=== PATIENT | female | born 1955 | race Caucasian/White ===

== ENCOUNTER 2016-07-06 00:28 | Emergency (ER) | payer SELFPAY ==
--- NOTE | ~2016-07-06 | CT71 ---
[facility] A Service [facility] RADIOLOGY TEXT RESULTS PATIENT: ODELL WAGNER LOCATION: [facility] : 51 UNIT #: [id number] AGE: [address]: Pawel Donis MD SEX: F ORDER DR: [id number] [facility] [address] [place], [place] [address] [id number] E MR#: [id number] Acc #: [id number] NAME: ODELL WAGNER : 1955 SEX: F STUDY DATE/TIME: 07/06/2016 1:04 UNIT: [facility] ROOM: STUDY DESCRIPTION: CT Head Wo Contrast Attending Physician: Pawel Donis M.D. Ordering Physician: Pawel Donis M.D. Primary Care Physician: Primary Care Physician No MEDICAL IMAGING REPORT This report is preliminary unless electronic signature is present EXAM CT head, noncontrast, 07/06/2016 HISTORY 60-year-old female in the ED complaining of 3-day history of headache, body aches and cough. TECHNIQUE CT examination of the head was performed without IV contrast. This CT exam was performed with one or more of the following radiation dose reduction techniques: automatic exposure control, adjustment of mA and/or kV according to patient size, and iterative reconstruction. FINDINGS No acute intracranial abnormality is identified. Minimal generalized cerebral cortical atrophy. Mild diffuse low-attenuation white matter changes, nonspecific but likely related to chronic small vessel disease. 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 No evidence of intracranial hemorrhage, mass, mass effect, cerebral edema, hydrocephalus or additional abnormality. Mild mucosal thickening is visible within the ethmoid and maxillary sinuses. IMPRESSION 1. No acute intracranial abnormality. 2. Mild diffuse chronic changes as noted above. 3. Mild mucosal thickening in the visualized ethmoid and maxillary sinuses. [facility] A Service [facility] RADIOLOGY TEXT RESULTS PATIENT: ODELL WAGNER LOCATION: [facility] : 53 UNIT #: [id number] AGE: [address]: Pawel Donis MD SEX: F ORDER DR: Dictated by... Jimenez Glover M.D. THIS IS AN ELECTRONICALLY VERIFIED REPORT Jimenez Glover M.D. at 07/06/2016 10:06 PM EDEN/calli TD: 07/06/2016 13:06 JOB #: [id number] MEDICAL IMAGING REPORT Page 1 of 1 COPY
--- NOTE | ~2016-07-06 | CR72 ---
[facility] A Service of [facility] RADIOLOGY TEXT RESULTS PATIENT: ODELL WAGNER LOCATION: [facility] : 53 UNIT #: [id number] AGE: [address]: Pawel Donis MD SEX: F ORDER DR: [id number] [facility] [address] [place], [place] [address] [id number] E MR#: [id number] Acc #: [id number] NAME: ODELL WAGNER : 1955 SEX: F STUDY DATE/TIME: 07/06/2016 2:50 UNIT: [facility] ROOM: STUDY DESCRIPTION: CR Chest Single View Portable Attending Physician: Pawel Donis M.D. Ordering Physician: Pawel Donis M.D. Primary Care Physician: Primary Care Physician No MEDICAL IMAGING REPORT This report is preliminary unless electronic signature is present EXAM AP portable chest 07/06/2016 HISTORY 60-year-old female in the ED complaining of 3-day history of chest pain, shortness of air and body aches. TECHNIQUE AP portable chest x-ray. FINDINGS No definite active disease in the chest. Mild cardiomegaly. Pulmonary vascularity is normal. Elevated right hemidiaphragm, most likely chronic. The lungs appear clear. No pleural effusion. IMPRESSION No active disease. Dictated by... Jimenez Glover M.D. THIS IS AN ELECTRONICALLY VERIFIED REPORT Jimenez Glover M.D. at 07/06/2016 10:06 PM EDEN/imelda TD: 07/06/2016 13:20 JOB #: [id number] MEDICAL IMAGING REPORT Page 1 of 1 COPY
[2016-07-06 01:16] LABS: BASOPHIL% 0.1 % (0-2.5); HEMATOCRIT 41.1 % (35.0-45.0); HEMOGLOBIN 13.5 gm/dL (12.0-16.0); LYMPHOCYTE# 0.8 X10e3 (1.0-3.5); LYMPHOCYTE% 4.5 % (17.0-45.0); MEAN CELL VOLUME 87.7 FL (83-96); MEAN CORPUSCULAR HEMOGLOBIN 28.8 PG (28-34); MEAN CORPUSCULAR HGB CONC 32.9 g/dL (30-36); MEAN PLATELET VOLUME 7.9 FL (6.5-11.5); MONOCYTE# 0.8 X10e3 (0-1.0); MONOCYTE% 4.5 % (3.0-12.0); NEUTROPHIL# 15.2 X10e3 (1.5-7.1); NEUTROPHIL% 90.9 % (40-75); PLATELET COUNT 222 X10e3 (140-420); RED BLOOD COUNT 4.69 X10e (3.90-5.30); RED CELL DISTRIBUTION WIDTH 13.5 % (11.0-15.5); WHITE BLOOD COUNT 16.7 X10e3 (4.0-10.5)
[2016-07-06 01:17] LABS: DIFF IND YES
[2016-07-06 01:32] LABS: ALBUMIN SERUM 3.9 g/dL (3.5-5.0); ALKALINE PHOSPHATASE 111 U/L (32-92); ALT (SGPT) 19 U/L (10-40); AST (SGOT) 22 U/L (10-42); BILIRUBIN,TOTAL 0.9 mg/dL (0.2-2.0); BLOOD UREA NITROGEN 8 mg/dL (9-23); BUN/CREATININE RATIO 13.33; CALCIUM SERUM 8.5 mg/dL (8.4-10.2); CARBON DIOXIDE 25 mmol/L (22-31); CHLORIDE 96 mmol/L (100-111); CREATININE SERUM 0.6 mg/dL (0.6-1.4); GLOM FILT RATE Estimated ABOVE60 mL/min (>60); GLUCOSE FASTING 156 mg/dL (70-110); POTASSIUM 3.1 mmol/L (3.5-5.1); PROTEIN TOTAL SERUM 7.7 g/dL (6.0-8.3); SODIUM 131 mmol/L (135-145)
[2016-07-06 01:39] LABS: PLATELET ESTIMATE NORMAL (NORMAL); RBC NORMAL YES
[2016-07-06 02:22] LABS: URINE SOURCE CLEAN CATCH
[2016-07-06 02:28] LABS: URINE APPEARANCE CLEAR; URINE BILIRUBIN NEG (NEG); URINE BLOOD TRACE (NEG); URINE COLOR YELLOW; URINE GLUCOSE NEG (NEG); URINE KETONE NEG (NEG); URINE LEUKOCYTE ESTERASE 2+ (NEG); URINE NITRATE NEG (NEG); URINE PROTEIN TRACE (NEG); URINE SPECIFIC GRAVITY 1.014 (1.003-1.035); URINE UROBILINOGEN 0.2 MG/DL (NEG)
[2016-07-06 02:30] LABS: INFLUENZA A NEG (NEG); INFLUENZA B NEG (NEG)
[2016-07-06 02:30] LABS: CULTURE INDICATED? YES; U HYALINE CASTS AUWI 0-2 /[LPF]; URINE BACTERIA AUWI 1+ (NEGATIVE); URINE SQUAMOUS EPITHELIAL CELL OCC /[HPF]; UWBCS1 AUWI 25-50 (0-5)
== END 2016-07-06 04:01 | disposition home or self-care (01) ==
LOC: CED 00:28
PROVIDERS: Emergency Medicine
DX: N39.0 Urinary tract infection, site not specified (principal); R51 Headache; R11.2 Nausea with vomiting, unspecified
CPT/HCPCS: 70450; 71010; 80053; 81003; 85025; 87086; 87804; 96361; 96365; 96375; 99284; J0696; J1200; J1885; J2765